=== PATIENT | female | born 1980 ===

== ENCOUNTER 2022-06-25 08:34 | Outpatient (CLI) | payer OTHER | END 2022-06-25 08:44 | disposition home or self-care (01) | LOC: PPH VACUNA 08:34 | PROVIDERS: ATTEND Emergency Medicine Pediatric Emergency Medicine | DX: Z23 Encounter for immunization (principal) ==

== ENCOUNTER 2023-04-10 11:56 | Outpatient (CLI) | payer OTHER | END 2023-04-10 12:00 | disposition home or self-care (01) | LOC: SONOGRAMA 11:56 | PROVIDERS: ATTEND Physical Medicine & Rehabilitation | DX: S93.402A Sprain of unspecified ligament of left ankle, initial encounter (principal); M25.572 Pain in left ankle and joints of left foot; W19.XXXA Unspecified fall, initial encounter ==

== ENCOUNTER 2025-06-24 13:07 | Outpatient (CLI) | payer OTHER | END 2025-06-24 13:11 | disposition home or self-care (01) | LOC: SONOGRAMA 13:07 | PROVIDERS: ATTEND Physical Medicine & Rehabilitation | DX: D17.24 Benign lipomatous neoplasm of skin and subcutaneous tissue of left leg (principal) ==